=== PATIENT | female | born 1985 | race Caucasian/White ===

== ENCOUNTER 2019-01-12 19:21 | Emergency (ER) | payer OTHER ==
[2019-01-12 19:45] VITALS: BP 109/64; PULSE 79; TEMP 98.5; BMI 23.9
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
== END 2019-01-12 20:50 | disposition home or self-care (01) ==
LOC: JERFT 19:21
DX: S09.8XXA Other specified injuries of head, initial encounter (principal); V47.5XXA Car driver injured in collision with fixed or stationary object in traffic accident, initial encounter; Y92.414 Local residential or business street as the place of occurrence of the external cause; Y93.89 Activity, other specified; Y99.8 Other external cause status
CPT/HCPCS: 99282-25